=== PATIENT | female | born 1995 | race Caucasian/White ===

== ENCOUNTER 2023-03-06 22:00 | Emergency (ER) | payer MEDICAID ==
[~2023-03-06] VITALS: Ht 160 cm; Wt 80.6 kg
[2023-03-06 22:26] VITALS: BP 132/88; PULSE 105; RESP 18; TEMP 99.4; O2SAT 99
[2023-03-06] MEDS ORDERED: acetaminophen 325mg tablet PO ONE (23:25)
[2023-03-07] MEDS ORDERED: AZIT-164 PO (00:15)
== END 2023-03-07 00:25 | disposition home or self-care (01) ==
LOC: ER 22:01
DX: R07.81 Pleurodynia (principal); R05.9 Cough, unspecified
CPT/HCPCS: 71045; 99283